=== PATIENT | male | born 2000 | race Caucasian/White ===

== ENCOUNTER 2024-08-15 15:56 | Outpatient (CLI) | payer OTHER, SELFPAY ==
[2024-08-15 23:46] LABS: Chlamydia DNA Amplified* NOT DETECTED (No Detected); GC DNA Amplified* NOT DETECTED (No Detected)
== END 2024-08-15 15:57 | disposition home or self-care (01) ==
LOC: LKVREF 15:56
PROVIDERS: Visit Provider Emergency Medicine
DX: Z11.3 Encounter for screening for infections with a predominantly sexual mode of transmission (principal)
CPT/HCPCS: 87491; 87591